=== PATIENT | female | born 1980 | race African-American/Black ===

== ENCOUNTER 2017-05-17 18:05 | Emergency (ER) | payer OTHER ==
[2017-05-17 18:13] VITALS: BP 132/94; PULSE 92; TEMP 98.7; BMI 34.7
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
== END 2017-05-17 20:40 | disposition home or self-care (01) ==
LOC: JERFT 18:05
DX: O99.89 Other specified diseases and conditions complicating pregnancy, childbirth and the puerperium (principal); M54.5 Low back pain; V43.62XA Car passenger injured in collision with other type car in traffic accident, initial encounter; Y92.414 Local residential or business street as the place of occurrence of the external cause; Y93.89 Activity, other specified
CPT/HCPCS: 99281-25